=== PATIENT | male | born 1990 | race Two or more races ===

== ENCOUNTER 2025-02-06 17:02 | Emergency (ER) | payer MEDICAID, OTHER ==
[~2025-02-06] VITALS: Ht 177.8 cm; Wt 95.5 kg
[2025-02-06 17:04] VITALS: BP 131/75; PULSE 76; RESP 16; TEMP 98.4; O2SAT 96
[2025-02-06] MEDS ORDERED: LIDOCAINE W/ EPINEPHRINE 2% INJ 20ML VIAL IJ ONE (20:00)
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
== END 2025-02-06 23:22 | disposition home or self-care (01) ==
LOC: ER 17:02
DX: S01.81XA Laceration without foreign body of other part of head, initial encounter (principal); X58.XXXA Exposure to other specified factors, initial encounter; Y93.89 Activity, other specified; Y92.89 Other specified places as the place of occurrence of the external cause; Y99.8 Other external cause status
CPT/HCPCS: 12011